=== PATIENT | male | born 1985 | race Caucasian/White ===

== ENCOUNTER 2020-03-31 23:33 | Emergency (ER) | payer SELFPAY ==
--- NOTE | 2020-04-01 00:35 | NUR ---
called pt in wr. no one responded.
--- NOTE | 2020-04-01 00:38 | NUR ---
called pt in wr. no one responded. per admitting pt left.
== END 2020-04-01 00:39 | disposition home or self-care (01) ==
LOC: ER 23:39
DX: Z53.21 Procedure and treatment not carried out due to patient leaving prior to being seen by health care provider (principal)